=== PATIENT | female | born 1975 | race African-American/Black ===

== ENCOUNTER 2021-07-06 12:05 | Observation (INO) | payer BC, SELFPAY ==
[2021-06-29 08:45] VITALS: BMI 23.6
[2021-07-06] VITALS (16 sets, daily range): BP systolic 98–149; BP diastolic 60–87; PULSE 68–95; RESP 9–16; TEMP 35.8–36.5; O2SAT 93–99; BMI 23.6
[2021-07-06] MEDS: LACTATED RINGERS 1,000 ML 42 ML IV ×2 (12:51→16:50)
[2021-07-06] MEDS: ACETAMINOPHEN 325 MG TABLET 975 MG PO (14:19)
[2021-07-06] MEDS: CEFAZOLIN 1 GM VIAL 2 GM IV (14:59)
--- NOTE | 2021-07-06 15:14 | SUR.OPER ---
Supine on padded OR bed, head on pillow, arms padded and tucked at sides, legs uncrossed, safety belt at thigh, tape over blanket over lower legs .
[2021-07-06] MEDS: BUPIVACAINE 0.25% (PF) 30 ML, EPINEPHrine 0.3 MG INJ (15:19)
--- NOTE | 2021-07-06 17:35 | DI.RAD.S_ITS ---
PROCEDURE: XR CERVICAL SPINE 2V OR 3V INDICATIONS: C5-6, C6-7 ACDF TECHNIQUE: 3 intraoperative view(s) of the cervical spine were acquired. COMPARISON: SNO Outside Film, CR, XR CERVICAL SPINE 4 OR 5 VIEW, 03/06/2021, 15:26. FINDINGS: Intraoperative images demonstrate ACDF at C5-C7. Hardware projects in the expected location. Enteric tube and esophageal temperature probe. IMPRESSION: Intraoperative guidance for C5-C7 ACDF. Dictated by: Teto Brown M.D. on 07/06/2021 at 17:42 Approved by: Teto Brown M.D. on 07/06/2021 at 17:43
--- NOTE | 2021-07-06 17:41 | P.OP_ITS ---
Operative Date/Time/Diagnoses Date of procedure: 07/06/21 Time of procedure: 14:00 Pre-op diagnosis: 1. C5-6, C6-7 spinal stenosis 2. Cervical spondylosis with myelopathy Post-op diagnosis: same Procedure & Clinicians Procedure: 1. C5-6 C6-7 anterior cervical diskectomy and fusion 2. C5-6 C6-7 anterior interbody cage placement 3. C5-6 C6-7 anterior instrumentation with plate and screw placement in C5-C6 and C7 vertebrae 4. Utilization of microsurgical technique and operating microscope Same procedure as scheduled: Yes Indications: Patient has been having chronic neck pain and worsening cervical radiculopathy. Patient failed multiple conservative management with worsening pain weakness and numbness in her upper extremity. Patient has been having difficulty performing activity of daily living. After discussing risks benefits of treatment options, patient elected proceed with surgery. Surgeon: Lissette Uriarte Stretcher Leveler Operator Helper: Paula Santiago Click Yes if Unassisted: No Anesthesia Type: General Operative Notes Closure Type: primary Specimen(s): none sent Prosthetic devices, grafts, tissues, transplants, or devices: Globus Extend Plate, PEEK cages Estimated Blood Loss (mL): 5 Blood products transfused: none Procedure in detail: Patient was seen in the preoperative area. Risks and benefits of the surgery was discussed with the patient. Operative consent was obtained and placed in the chart. Patient was then taken to the operative room. Prophylactic antibiotic was given less than 0.5 hr prior to skin incision. General anesthesia was administered. Patient was placed into a supine position on her radiolucent table. Bilateral shoulders were taped down to allow proper C-arm imaging. Anterior cervical area was prepped and draped in a sterile fashion. Time-out was performed at this time. Using lateral C-arm imaging, the level between C5 and C7 was identified and marked on patient's neck. A oblique incision from midline towards medial border of sternocleidomastoid muscle was made. The platysma muscle was incised in line with skin incision. Metzenbaum scissor was used to develop the plane between the medial border of sternocleidomastoid d and the strap muscles medially. The carotid sheath and its contents were identified and protected behind the hand- held retractor during the entire case. The plane between the carotid sheath and strap muscles was developed with Metzenbaum scissors. Dissection was made down to the level of the anterior cervical fascia. Longus colli muscle was incised on the anterior aspect of vertebral bodies bilaterally from C5-C7. Spinal needle was placed into the C5-6 disc space and confirmed with lateral C-arm imaging. Using microsurgical technique and operative microscope, anterior cervical diskectomy was performed at C5-6 and C6-7 level. This was done by removing the d isc material, removing the anterior and posterior osteophytes posterior longitudinal ligaments along with performing bilateral foraminotomies at both levels. Patient was found to have severe central and foraminal stenosis at both levels. Patient's stenosis was fully decompressed after decompression was completed. After the diskectomy was completed, 2 anterior interbody cages were obtained. The cages were packed with globus via cell bone grafting material. One cage each along with the bone grafting material was then packed into the interbody spaces from C5-C7 with one cage into each interbody level. After the cages were placed, the anterior cervical plate was stabilized to the C5-C7 vertebrae using 2 screws at each each level. Total 6 screws were placed. After confirming placement of the hardware with AP and lateral C-arm imaging, the screws were locked into the plate using the locking mechanism and torque limiting screwdriver. After the hardware was placed and confirmed with AP and lateral C-arm imaging, the wound was irrigated with sterile normal saline. The platysma muscle and the subcutaneous tissue was closed with 2-0 Vicryl. The skin was closed with 4-0 Monocryl and Steri-Strips. Patient tolerated the procedure well. Patient was transferred recovery room in stable condition. There were no complications. Complications: none Post-operative Condition: stable Disposition: PACU Plan for aftercare: Admit to inpatient hospital
[2021-07-06] MEDS: OXYCODONE IR 5 MG TABLET PO (18:17)
[2021-07-06] MEDS: SODIUM CHLORIDE 0.9% 1,000 ML 100 ML IV (20:06)
[2021-07-06] MEDS: ACETAMINOPHEN 325 MG TABLET 650 MG PO (20:07)
[2021-07-06] MEDS: OXYCODONE IR 5 MG TABLET 10 MG PO ×2 (20:15→23:30)
[2021-07-06] MEDS: CEFAZOLIN 2 GM/20 ML SYRINGE IV (22:25)
[2021-07-06] MEDS: hydrOXYzine pamoate 25 MG CAPSULE PO (23:30)
[2021-07-07] MEDS: HYDROMORPHONE 0.5 MG INJ IV (03:06)
[2021-07-07] MEDS: OXYCODONE IR 5 MG TABLET 10 MG PO ×2 (04:27→10:50)
[2021-07-07 05:00] VITALS: BP 144/83; PULSE 98; RESP 16; TEMP 36.6; O2SAT 97
[2021-07-07] MEDS: CEFAZOLIN 2 GM/20 ML SYRINGE IV (06:09)
--- NOTE | 2021-07-07 07:46 | PC.NURSE ---
wakes in good spirits, anticipating going home today. States no numbness or tingling in any extremities. Mild neck soreness. Offers no other c/o. Took foot scds off for Pt to have a break. Pt restful, goign back to sleep.
[2021-07-07 08:49] VITALS: BP 124/70; PULSE 95; RESP 16; TEMP 36.1; O2SAT 98
--- NOTE | 2021-07-07 09:00 | OT.IP.EVAL ---
Current Diagnoses Other spondylosis with radiculopathy, cervical region (07/06/21) Spinal stenosis, cervical region (07/06/21) Surgery Performed Operation Date: 07/06/21 13:45 Actual Procedures p C5-6, C6-7 ACDF with anterior instrumenation(Not Applicable) - Lissette Uriarte MD Past Medical History (Last Updated 06/29/21 @ 09:20 by Kathy Deutsch RN) Anesthesia COPD (chronic obstructive pulmonary disease) Former smoker Hodgkin lymphoma (2002) Hx of arthroscopy of right knee Numbness and tingling in both hands S/P LASIK surgery of both eyes Surgical History (Last Updated 06/29/21 @ 09:20 by Kathy Deutsch RN) Hx of arthroscopy of right knee S/P LASIK surgery of both eyes Occupational Therapy Inpatient Evaluation/Re-Eval M1 PT/OT-IP Prior Functional Status Start: 07/07/21 09:39 Freq: NEEDED Status: Active Protocol: Document 07/07/21 09:41 [facility] (Rec: 07/07/21 09:57 [facility] [id number]) Medical Review Prior Functional Status Communication Independent Mobility and Gait Independent and no use of devices. 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 Prior Functional Level (Other details) Pt's ex- lives with the pt and he will assist and care for her. Social History Household Members other Living Arrangements House Number of Floors (Floors) One Floor Number of Stairs To Enter/Railing? 3 steps with no rails to enter the house 2 small steps down to sunken living room and another 2 small steps up to get to her bedroom-there are denney she can hold to on both sets of steps. Otherwise pt can go around where there would be no steps to get to her bedroom. Home Environment High Toilet,Walk in Shower,Tub /Shower Home Equipment Hand Held Shower Employment Status Active Duty M2 OT-IP Current Condition Start: 07/07/21 09:39 Freq: Status: Active Protocol: Document 07/07/21 09:41 [facility] (Rec: 07/07/21 09:57 [facility] [id number]) Occupational Therapy Current Condition Current Condition Evaluation Date 07/07/21 Treatment Diagnosis S/P C5-6, C6-7 ACDF Diagnosis Onset Date 07/06/21 Post Operative Precautions Cervical Spine Precautions Soft Collar for Comfort,No Heavy Lifting,Log Roll M3 OT- IP Subjective and Pain Start: 07/07/21 09:39 Freq: Status: Active Protocol: Document 07/07/21 09:41 [facility] (Rec: 07/07/21 09:57 [facility] [id number]) OT- Subjective Occupational Therapy Visit Type Type Initial Evaluation Visit Start Time 08:55 Visit Stop Time 09:13 Total Visit Minutes 18 Occupational Therapy Visit Comments Patient Comments Pt agreed to get up for OT eval. Pt states pulled part of the dressing off due to too tight on her neck. Nursing called in to help re-dress her neck dressing. Patient/Caregiver Goals TO go home. OT Pain Assessment Pain When Pain Assessed At Rest Pain Present Pain Present Pain Reported Location Back Intensity 7 Scale Used Numeric (0 - 10) M4 OT- IP ADL's Start: 07/07/21 09:39 Freq: Status: Active Protocol: Document 07/07/21 09:41 [facility] (Rec: 07/07/21 09:57 [facility] [id number]) OT [id number] General Evaluation Self-Feeding Ability Independent Comments OT Self-Feeding Comments Educated pt on strategies for eating after ACDF surgery and information sheet given to the pt. OT ADL-Grooming Comments OT Grooming Comments NOt performed. OT ADL-Oral Care Comments Oral Care Comments Educated best to spit into a cup or hinge at her hips to spit into the sink to best follow her cervical precautions. OT ADL-Dressing General Eval Lower Body Dressing Ability Standby Assistance Comments OT Dressing Comments Pt able to comfortably cross her legs over to sue/doff her socks with good safety. Pt able to sue/doff the soft collar with good safety and demonstration. OT ADL-Toileting Comments OT Toileting Comments Pt not having to go. OT ADL-Bathing Comments OT Bathing Comments Educated to shower from neck down and have her ex- present to assist as needed. M5 OT- IP IADL's Start: 07/07/21 09:39 Freq: Status: Active Protocol: Document 07/07/21 09:41 [facility] (Rec: 07/07/21 09:57 [facility] [id number]) OT-Instrumental Activities of Daily Living Home Safety Awareness Awareness of Need for Assistance at Home Good Awareness Ability to Problem Solve Emergency Able to Problem Solve Situations Home Safety Comments Pt states a little groggy from medications and surgery and to have her ex- assist her as needed. Driving Driving Comments Pt aware will not be driving due to being on pain medications and best to ask the surgeon during her follow up appointment regarding driving needs. M6 OT- IP Functional Cognition Start: 07/07/21 09:39 Freq: Status: Active Protocol: Document 07/07/21 09:41 [facility] (Rec: 07/07/21 09:57 [facility] [id number]) Cognitive Factors Limiting Selfcare Function Cognitive Ability Level of Alertness Alert Patient Orientation Name,Age,Birthday,Month,Date, Year,Day of Week,Place, Situation Attention Span Ability Capable of Focused Attention, Capable of Sustained Attention Ability to Follow Commands Able to Follow Multi-Step Commands Memory Description No Deficits Noted Safety Awareness Decreased Ability to Apply Precautions Problem Solving Ability No deficits Noted Cognitive Comments Cognitive Assessment Comments Pt a bit impulsive and needing vc to slow down and think about her cervical precautions. OT- Vision and Hearing OT- Hearing Assessment OT- Hearing Assessment WFL OT- Vision Assessment Visual Acuity WFL M7 OT- IP Mobility and Balance Start: 07/07/21 09:39 Freq: Status: Active Protocol: Document 07/07/21 09:41 [facility] (Rec: 07/07/21 09:57 [facility] [id number]) OT- Bed Mobility Assessment Rolling Level of Assistance Standby Assistance Supine to Sit Supine to Sit Assist Standby Assistance Sit to Supine Sit to Supine Assist Standby Assistance OT-Transfer Assessment Sit to and From Stand Sit to and from Stand Standby Assistance Transfers Transfer Ability Standby Assistance Technique Transfer Destination Bed Devices Transfer Assistive Devices None Comments Mobility Comments SBA for mobility needs in the room. Mainly supervision to follow her cervical precautions and remind her to slow down. OT- Balance Assessment Sitting Balance and Reactions Static Sitting Balance Ability Normal Dynamic Sitting Balance Ability Normal Standing Balance and Reactions Static Standing Balance Ability Good Dynamic Standing Balance Ability Good M8 OT- IP Objective Assessments Start: 07/07/21 09:39 Freq: Status: Active Protocol: Document 07/07/21 09:41 [facility] (Rec: 07/07/21 09:57 [facility] [id number]) OT-Muscle Tone Assessment Muscle Tone WNL Yes OT Sensation Assessment Comments Summary Comments Pt states not longer has tingling in her hands. M9 OT- IP Assessment and Plan Start: 07/07/21 09:39 Freq: Status: Active Protocol: Document 07/07/21 09:41 [facility] (Rec: 07/07/21 09:57 [facility] [id number]) OT Summary Assessment and Plan Potential Rehabilitation Potential Excellent Analytic Complexity at Evaluation Low Summary OT Impairments Pain,Functional Mobility, Dressing,Bathing Progress Towards Goals Progressing Toward Goals Assessment Summary Pt low complexity and main barriers are steps, needing cues to slow down and incorporate her cervical precautions. Pt states her ex- will be home to assist her for her needs. Pt to go home when medically stable. Goals Dressing Goal Independent Toileting Goal Independent Bathing Goal Independent Toilet Transfer Goal Independent Shower Transfer Goal Independent Patient/Caregiver Education Goal Demonstrate Post-Op Precautions Days to Meet Goals 1 Frequency of Treatment Frequency Of Treatment Once a Day Treatment Plan OT Treatment Plan ADL Training,Functional Cognition Training,Functional Mobility,Patient/Family Education,Discharge Planning Discharge Recommendations OT Discharge Recommendations Home with Assistance Transportation Needs at Discharge Private Vehicle
--- NOTE | 2021-07-07 10:40 | PT.IIE ---
Current Diagnoses Other spondylosis with radiculopathy, cervical region (07/06/21) Spinal stenosis, cervical region (07/06/21) Surgery Performed Operation Date: 07/06/21 13:45 Actual Procedures p C5-6, C6-7 ACDF with anterior instrumenation(Not Applicable) - Lissette Uriarte MD Medical History (Last Reviewed 07/07/21 @ 12:16 by Kristian Jiménez PA-C) Anesthesia COPD (chronic obstructive pulmonary disease) Former smoker Hodgkin lymphoma (2002) Numbness and tingling in both hands Physical Therapy Inpatient Evaluation/Re-Eval M1 PT/OT-IP Prior Functional Status Start: 07/07/21 12:36 Freq: NEEDED Status: Active Protocol: Document 07/07/21 10:40 [facility] (Rec: 07/07/21 12:45 [facility] [id number]) Medical Review Prior Functional Status Medical History Reviewed Yes Communication able to make needs known Mobility and Gait pt stated that she is independent with all mobilities and ambulation without AD Social History Household Members spouse Living Arrangements House Number of Floors (Floors) One Floor Number of Stairs To Enter/Railing? 2 steps without rails to enter the house 2 + 2 steps to get into the bedroom Home Environment High Toilet,Walk in Shower Home Equipment Hand Held Shower,Grab Bars Near Toilet Employment Status Active Duty Additional Social History Comment pt has an adjustable bed M2 PT-IP Current Condition Start: 07/07/21 12:36 Freq: NEEDED Status: Active Protocol: Document 07/07/21 10:40 [facility] (Rec: 07/07/21 12:45 [facility] [id number]) Physical Therapy Current Condition Current Condition Evaluation Date 07/07/21 Treatment Diagnosis s/p C5-6, C6-7 ACDF; difficulty in walking Onset Date 07/06/21 M3 PT-IP Subjective Start: 07/07/21 12:36 Freq: NEEDED Status: Active Protocol: Document 07/07/21 10:40 [facility] (Rec: 07/07/21 12:45 [facility] [id number]) Subjective Physical Therapy Visit Type Type Initial Evaluation Visit Start Time 10:40 Visit Stop Time 10:55 Total Visit Minutes 15 Number of BUGGY LADLE TENDER Visits 0 Physical Therapy Visit Comments Patient Comments agreeable to do PT Therapy Pain Assessment Pain When Pain Assessed At Rest Pain Present Pain Present Pain Reported Location Neck Intensity 8 Scale Used Numeric (0 - 10) Pain Management Techniques Distraction,Modification of Treatment,Re-positioning M4 PT-IP Mobility and Gait Start: 07/07/21 12:36 Freq: NEEDED Status: Active Protocol: Document 07/07/21 10:40 [facility] (Rec: 07/07/21 12:45 AB [id number]) PT-Bed Mobility Assessment Rolling Type of Rolling Log Rolling Level of Assist Standby Assistance Supine to Sit Supine to Sit Standby Assistance PT-Transfer Assessment Sit to and From Stand Sit to and from Stand Standby Assistance,Use of Upper Extremities Equipment Transfer Assistive Device None Orthotic/Prosthetic Devices or Brace: Yes Transfers Transfer Destination Toilet Transfer Technique ambulated without AD Transfer Ability Level of Assist Standby Assistance Comments Mobility Comments pt supine in bed. reviewed cervical precautions and pt able to recall. completed log roll supine to sit SBA. completed sit to stand and ambulated in room without AD SBA. agreed to walk in the hallway and completed 200 ft without AD. completed up/ down steps without rails SBA. ambulated back to her room and ambulated to the toilet without AD SBA. Left pt with spouse in room. Pt has no concerns. Gait Assessment Gait Gait Assistance Required: Standby Assistance Distance (Feet) 200 Able to Maintain Weight Bearing Status Yes During Gait Assistive Devices Assistive Device None Orthotic/Prosthetic Devices or Brace: Yes Factors Limiting Gait Function Factors Limiting Gait Function Limited Range of Motion,Pain Stair Climbing Assessment Evaluation Level of Assist On Stairs Standby Assistance Devices Stair Climbing Assistive Devices None Technique/Endurance Stair Climbing Technique Step to Step Number of Steps Climbed 3 Query Text: Stair Climbing Set # Repetitions (reps) 1 PT-Balance Assessment Sitting Balance and Reactions Static Sitting Balance Ability Normal Dynamic Sitting Balance Ability Normal Standing Balance and Reactions Static Standing Balance Ability Good Dynamic Standing Balance Ability Good Device Used without AD M5 PT-IP Objective Assessments Start: 07/07/21 12:36 Freq: NEEDED Status: Active Protocol: Document 07/07/21 10:40 [facility] (Rec: 07/07/21 12:45 AB [id number]) Orientation Orientation/Cognition Level of Alertness Alert Orientation Name,Age,Birthday,Month,Date, Year,Day of Week,Place, Situation Safety Awareness Understands Safety Issues Memory Description No Deficits Noted Gross Range of Motion Lower Extremity ROM Assessment Within Functional Limits Strength Lower Extremity Strength Assessment Within Functional Limits Sensation Assessment Sensation Gross Sensation WNL Muscle Tone Muscle Tone WNL Yes M6 PT-IP Treatment Start: 07/07/21 12:36 Freq: NEEDED Status: Active Protocol: Document 07/07/21 10:40 [facility] (Rec: 07/07/21 12:45 AB [id number]) Physical Therapy Treatment Education Education Provided Precautions,Safety M7 PT-IP Assessment and Plan Start: 07/07/21 12:36 Freq: NEEDED Status: Active Protocol: Document 07/07/21 10:40 [facility] (Rec: 07/07/21 12:45 AB [id number]) PT Summary Assessment and Plan Potential Rehabilitation Potential Good Status of Condition at Evaluation Stable Summary Impairments Pain,ROM,Strength,Bed Mobility ,Transfers,Gait,Activity Tolerance Assessment Summary pt requiring SBA with mobility without AD and plans to go home with spouse to assist. Pt may go home when medically stable. Goals Bed Mobility Goal Independent Transfer Goal Independent Gait Goal Independent Gait Distance 300 Other Goals up/down 4 steps without rails mod I Days to Meet Goals 3 Frequency of Treatment Frequency Of Treatment Twice a Day Treatment Plan Physical Therapy Treatment Plan Bed Mobility Training,Transfer Training,Gait Training, Therapeutic Exercise,Balance Retraining,Post Op Education, Discharge Planning,Hot or Cold Pack,Neuromuscular Re-ed, Coordination Retraining,Manual Therapy Precautions Cervical Spine Precautions Soft Collar for Comfort,No Heavy Lifting,Log Roll Recommendations To Nursing Amount of Assist Needed Standby Assistance Discharge Recommendations PT Discharge Recommendations Home with Assistance Transportation Needs at Discharge Private Vehicle
--- NOTE | 2021-07-07 12:13 | P.DS_ITS ---
History of Present Illness History of Present Illness Date Patient Seen: 07/07/21 Time Patient Seen: 12:14 Chief complaint: Cervical Fusion Anterior *OPB* Narrative: Pain is [id number]. Denies fever or chills. No nausea or vomiting. Patient notes her throat is sore but able to drink and swallow soft food without difficulty. Discharge Providers Provider Date of admission: 07/06/21 12:05 Discharge Date: 07/07/21 Consults: 07/06/21 16:32 Consult to Respiratory Therapy Evaluate & Treat Comment: COPD, smoker, s/p 2 level C-spine fusion Physician Instructions: Evaluate and treat 07/06/21 18:49 Consult to Occupational Therapy Evaluate & Treat Comment: Physician Instructions: Evaluate and treat Consult to Physical Therapy Evaluate & Treat Comment: Physician Instructions: Evaluate and Treat Discharge provider: Kristian Jiménez PA-C Summary Hospital Course Discharge Diagnosis: 1. C5-6, C6-7 spinal stenosis 2. Cervical spondylosis with myelopathy Hospital Course: 1.? C5-6 C6-7 anterior cervical diskectomy and fusion 2.? C5-6 C6-7 anterior interbody cage placement 3.? C5-6 C6-7 anterior instrumentation with plate and screw placement in C5-C6 and C7 vertebrae 4.? Utilization of microsurgical technique and operating microscope Same procedure as scheduled: Yes Indications: Patient has been having chronic neck pain and worsening cervical radiculopathy. Patient failed multiple conservative management with worsening pain weakness and numbness in her upper extremity.? Patient has been having difficulty performing activity of daily living.? After discussing risks benefits of treatment options, patient elected proceed with surgery. Surgeon: Lissette Uriarte Front Desk Supervisor: Paula Santiago Click Yes if Unassisted: No Anesthesia Type: General Operative Notes Closure Type: primary Specimen(s): none sent Prosthetic devices, grafts, tissues, transplants, or devices: Globus Extend Plate, PEEK cages Estimated Blood Loss (mL): 5 Blood products transfused: none Patient admitted to the hospital for the above-mentioned procedure. Patient co nsented to the same. Patient taken to the operating room on July 06, 2001. Patient back in her room recovering well as in stable condition. Patient did well with therapy and will be discharged home today in stable condition. Soft collar for comfort. Status at Discharge Cognitive/behavioral status at discharge: at baseline, oriented Functional status at discharge: uses cane/walker Overall status at discharge: patient is progressing back to baseline Exam Vital Signs (past 8 hours): - 07/07/21 05:00 07/07/21 08:49 Temperature 97.8 F 97 F L Pulse Rate 98 H 95 H Respiratory Rate 16 16 Blood Pressure 144/83 H 124/70 Pulse Oximetry 97 98 Oxygen Delivery Method Room Air Oxygen Flow Rate 0 Narrative Exam Narrative: Pleasant 46-year-old female resting comfortably in bed in no apparent distress. Cervical dressing is Clean, dry, intact.. Soft collar on. 5/5 strength bilateral upper extremities. Sensation grossly intact bilateral upper extremities. Const General: cooperative Orientation: alert [facility] Medical History Anesthesia COPD (chronic obstructive pulmonary disease) Former smoker Hodgkin lymphoma (2002) Numbness and tingling in both hands Surgical History Hx of arthroscopy of right knee S/P LASIK surgery of both eyes Social History household members: other Smoking Status: Former smoker alcohol intake: current Discharge Assessment & Plan Assessment and Plan Assessment: Patient progressing as expected status post C5-C6, C6-C7 ACDF Plan of Treatment: Discharge home today in stable condition Discharge Plan Discharge Plan Patient Disposition: Home Discharge orders & Medications Prescriptions: New acetaminophen 325 mg Tablet 650 mg PO Q6HR PRN (Reason: Pain, Mild (1-3)) Qty: 60 0RF docusate sodium 100 mg Capsule 100 mg PO BID Qty: 20 0RF hydroxyzine pamoate 25 mg Capsule 25 mg PO Q4HR PRN (Reason: Nausea And Vomiting) Qty: 30 0RF oxycodone 5 mg Tablet 10 mg PO Q3HR PRN (Reason: Pain, Severe (7-10)) Qty: 60 0RF Discontinued tramadol 50 mg Tablet 50 mg PO BID 0RF Follow up/Referrals: Lissette Uriarte MD [Physician] - (Two weeks) Diet/Activity/Treatments Diet: Diet as Tolerated Activity: Limit bending, lifting, twisting Cold/Heat Therapy: Ice as needed Skin/Wound/Dressing Care Report to your healthcare provider any signs of infection, such as:: chills, fever, increased pain, unusual drainage and unusual redness Dressing: Keep dressing clean and dry Visit Report/Discharge Packet Instructions: DI for Prescription Opioid Use, DI for Anterior Cervical Discectomy and Fusion Stand Alone Forms: Surgery Discharge Discharge Data Attending Provider: Lissette Uirarte VTE Deep Vein Thrombosis/Pulmonary Embolism Present on Admission: No
== END 2021-07-07 13:30 | disposition home or self-care (01) ==
LOC: OR 12:09 → AC 12:10
PROVIDERS: Admitting Provider Orthopaedic Surgery Orthopaedic Surgery of the Spine; Referring Provider Internal Medicine; Visit Provider Orthopaedic Surgery Orthopaedic Surgery of the Spine
PROC: (CPT 22551; principal; 2021-07-06 13:45)
DX: M48.02 Spinal stenosis, cervical region (principal); M47.22 Other spondylosis with radiculopathy, cervical region; M25.78 Osteophyte, vertebrae; F17.210 Nicotine dependence, cigarettes, uncomplicated; J44.9 Chronic obstructive pulmonary disease, unspecified; Z85.71 Personal history of Hodgkin lymphoma; F32.9 Major depressive disorder, single episode, unspecified; E78.5 Hyperlipidemia, unspecified; G43.909 Migraine, unspecified, not intractable, without status migrainosus
CPT/HCPCS: 22551; 22552; 22853 ×2; 72040; 76000; 97161; 97165; 97535; C1776; G0378; J0171; J0330; J0690; J1100; J1170; J2250; J2405; J2704; J3010

== ENCOUNTER → 2024-03-26 10:33 | Outpatient (CLI) | payer OTHER, SELFPAY ==
[2021-07-06 18:49] VITALS: BMI 23.6
--- NOTE | 2024-03-26 10:35 | DI.RAD.S_ITS ---
PROCEDURE: FL BARIUM SWALLOW W SPEECH INDICATIONS: Dysphagia, pharyngoesophageal phase COMPARISON: None. TECHNIQUE: Examination was conducted in conjunction with speech pathology per standard protocol. In the lateral projection, filming was performed of the patient swallowing. AP projection filming may also be performed with patient swallowing. COMPARISON: FINDINGS: Function: The oral preparatory phase appears normal, with proper containment. The subsequent oral propulsive phase, pharyngeal phase, and esophageal phase of swallowing also appear normal with all proffered substances. No laryngotracheal penetration or aspiration. No pathologic vallecular pooling. Morphology: No cricopharyngeal bar is identified. No cervical esophageal webs. No Zenker's diverticulum. No strictures. IMPRESSION: No penetration or aspiration. Dictated by: Matthias Rankin M.D. on 03/26/2024 at 14:57 Approved by: Matthias Rankin M.D. on 03/26/2024 at 14:58
--- NOTE | 2024-03-26 14:07 | ST.SWALLOW ---
Visit Care Team Role Provider Type Arpit Gonzalez MD Attending Provider Non-Staff Primary Care Provider Referring Provider Specialty: Internal Medicine Address: [address] [place] [address], [place], [address] Email: Modified Barium Swallow Study [employer] Modified Barium Swallow Study Start: 03/26/24 13:17 Freq: Status: Active Protocol: Document 03/26/24 13:17 LNK (Rec: 03/26/24 14:07 LNK [id number]) Modified Barium Swallow Study Total Time Visit Start Time 11:00 Visit Stop Time 11:30 Total Visit Minutes [address] Arpit Carson Reason for Referral dysphagia Setting Setting Outpatient Care Patient Information Identification Type Name,Date of Patient History Pt was seen for a Modified barium Swallow Study at the referral of Dr Carson. According to the pt she has a PMH of non-Hodgkin's lymphoma in [id number]. Additionally she underwent ACDF (C5-C7) surgery 3 years ago. Pt reported that she underwent radiation treatment of her lymphoma over her chest area and lower neck. Following her radiation treatment, pt reported increasing difficulty with swallowing. She described difficulty with foods/liquids getting stuck and often she regurgitates undigested foods. She stated this may occur 1-3x daily. Subjective Observations Pt was seated in the fluoroscopy chair with directions and procedures described for her. She indicated she understood and agreed to proceed. Patient Positioning Position View Lat-A/P Imaging Lateral View Textures Administered Trials Presented Thin Liquid via Spoon (IDDSI 0 ),Thin Liquid via Cup (IDDSI 0 ),Extremely Thick Liquid via Spoon (IDDSI 4),Regular (IDDSI 7) Barium Tablet Yes The IDDSI Framework Protocol: IDDSI.1 Oral Impairment Source: The Modified Barium Swallow Impairment Profile (MBSImP??) Lip Closure No labial escape Tongue Control During Bolus Hold Cohesive bolus between tongue to palatal seal Bolus Preparation/Mastication Timely & efficient chewing & mashing Bolus Transport/Lingual Motion Brisk tongue motion Oral Residue Complete oral clearance Initiation of Pharyngeal Swallow Bolus head in valleculae Additional Oral Impairment Observations *OME and DKS were observed to be WNL. *Dentition natural and in good hygiene *Mastication observed with rotary chew pattern. *Good bolus formation, control and AP transition. Pharyngeal Impairment Source: The Modified Barium Swallow Impairment Profile (MBSImP??) Soft Palate Elevation No bolus between soft palate & pharyngeal wall Laryngeal Elevation Comp.sup.move.thyroid cart.w/ comp.approx.arytenoids to epiglot petiole Anterior Hyoid Excursion Complete anterior movement Epiglottic Movement Complete inversion Laryngeal Vestibular Closure Complete; no air/contrast in laryngeal vestibule Pharyngeal Stripping Wave Present - complete Pharyngoesophageal Segment Opening Complete distention & complete duration; no obstruction of flow Tongue Base Retraction Trace column of contrast/air betwn tongue base & post. pharyngeal wall Pharyngeal Residue Trace residue within/on pharyngeal structures Location Valleculae Additional Pharyngeal Impairment Pharyngeal phase of swallow Observations WNL A/P View Textures Administered Trials Presented Thin Liquid via Cup (IDDSI 0) The IDDSI Framework Protocol: IDDSI.1 A/P View Observations Pharyngeal Contraction Complete Esophageal Clearance Upright Position Complete clearance; esophageal coating Esophageal Function Slowed Clearing Additional A-P Observations Thin liquids and barium tablet were trialed. Diffuse residual of contrast ( semisolid/solid trials ) noted upon change from lateral to AP view. Partially cleared with water wash Thin barium and barium tablet cleared esophagus in a timely manner Clinical Impressions Dysphagia Type Esophageal Findings Overall, pt demonstrated oral, pharyngeal and esophageal phases WFL. Pt reported that she will frequently have undigested emisis following eating/drinking. When asked, she noted she usually does not drink liquid with her meals. Pt's esophagus was slower than expected clearing semisolid and solid trials as seen in the change from lateral to AP view. Possible radiation affect on soft tissues have resulted in a slowed peristalsis for solid trials. pt reported her symptoms starting after radiation therapy. It was recommended to the pt that she increase liquids during meals, possible alternating liquids and solids . Increased liquids during meals may aid in esophageal clearance to the stomach and reduce packing of solid foods in her upper esophagus, leading to emisis. Patient Appropriate for Therapy No Recommendations Diet Comments No change in diet recommended at this time Aspiration Precautions Recommended Precautions Alternate Liquids/Solids,Small Bites/Sips Treatment Plan Recommended Referrals GI Consult Additional Recommended Referrals GI consult may be indicated if pt's symptoms continue
== END ==
LOC: RAD 10:34
PROVIDERS: PCP Internal Medicine; Referring Provider Internal Medicine; Visit Provider Internal Medicine
DX: R13.14 Dysphagia, pharyngoesophageal phase (principal)
CPT/HCPCS: 74230

== ENCOUNTER → 2025-04-18 07:45 | Outpatient (CLI) | payer OTHER, SELFPAY ==
[2021-07-06 18:49] VITALS: BMI 23.6
== END ==
PROVIDERS: Family Provider Internal Medicine; PCP Internal Medicine; Referring Provider Orthopaedic Surgery; Visit Provider Orthopaedic Surgery
DX: S63.512A Sprain of carpal joint of left wrist, initial encounter (principal)
CPT/HCPCS: 95886; 95909